=== PATIENT | male | born 1960 | race Native Hawaiian/Other Pacific Islander ===

== ENCOUNTER 2020-07-06 13:34 | Emergency (ER) | payer OTHER ==
[~2020-07-06] VITALS: Ht 172.7 cm; Wt 113.4 kg
[2020-07-06 13:50] VITALS: TEMP 97.4
[2020-07-06 17:45] VITALS: BP 188/58
== END 2020-07-06 17:50 | disposition short-term general hospital (02) ==
LOC: ED 13:34
PROC: 0RSJXZZ Reposition Right Shoulder Joint, External Approach (ICD-10-PCS; principal; 2020-07-06)
DX: S43.084A Other dislocation of right shoulder joint, initial encounter (principal); W18.39XA Other fall on same level, initial encounter; Y92.89 Other specified places as the place of occurrence of the external cause
CPT/HCPCS: 96372; 96374; 96375; 96376; 99284; J1170; J1885; J2704